=== PATIENT | female | born 1980 | race Caucasian/White ===

== ENCOUNTER 2016-07-18 17:31 | Emergency (ER) | payer BC ==
[~2016-07-18] VITALS: Ht 177.8 cm; Wt 79.5 kg
[~2016-07-18 17:31] MED LIST: ACID REDUCER200 MG PO; CALCIUM CARBONATE PO; CLARITIN10 MG PO; DUO-KAPS1 CAP PO; NO HOME MEDICATIONS; NORCO 325 MG-51 TAB PO; SYNTHROID0.075 MG/T PO; SYNTHROID0.088 MG/T PO; ZOFRAN 4MG T4 MG/TAB PO
[2016-07-18 17:32] VITALS: BP 120/85; TEMP 98.2
[2016-07-18] MEDS ORDERED: SYNTHROID0.125 MG/T PO (17:40)
[2016-07-18 18:32] LABS: BASO % 0.5 % (0.0-2.0); EOS # 0.2 (0.0-0.7); EOS % 2.8 % (0-4.0); GRAN # 5.9 (1.4-6.5); GRAN % 70.2 % (42.2-75.2); LYMPH # 1.5 (1.2-3.4); LYMPH % 17.3 % (20.0-51.0); MEAN CELL VOLUME 90 fl (80.0-100.0); MEAN CORPUSCULAR HGB CONC 34 g/dl (33.0-37.0); MEAN PLATELET VOLUME 10.3 fl (7.4-10.4); MONO # 0.7 (0.1-0.6); MONO % 7.9 % (1.7-9.3); PLATELET COUNT 209 K/mm3 (130-400); RED BLOOD COUNT 3.44 M/mm3 (4.10-5.30); REDCELL DISTRIBUTION WIDTH-CV 11.9 % (11.5-14.5); WHITE BLOOD COUNT 8.4 K/mm3 (4.8-10.8)
[2016-07-18 18:33] LABS: HEMATOCRIT 30.9 % (37.0-47.0); HEMOGLOBIN 10.5 g/dl (12.5-16.0); MEAN CORPUSCULAR HEMOGLOBIN 31 pg (27.0-31.0)
[2016-07-18 18:47] LABS: ALBUMIN 3.2 gm/dL (3.5-5.0); BILIRUBIN,TOTAL 0.7 mg/dL (0.0-1.0); CALCIUM 8.4 mg/dL (8.4-10.2); CREATININE, serum 0.5 mg/dL (0.52-1.25); POTASSIUM 3.7 mmol/L (3.4-5.0); TOTAL PROTEIN 5.9 gm/dL (6.4-8.2)
[2016-07-18 19:17] LABS: THYROID STIMULATING HORMONE 1.5 uIU/mL (0.465-4.680)
[2016-07-18 20:26] VITALS: PULSE 92
== END 2016-07-18 20:26 | disposition home or self-care (01) ==
LOC: COL.ER 17:31
PROVIDERS: Emergency Medicine
DX: O99.89 Other specified diseases and conditions complicating pregnancy, childbirth and the puerperium (principal); R00.2 Palpitations; Z3A.22 22 weeks gestation of pregnancy

== ENCOUNTER 2016-09-16 11:34 | Inpatient (IN) | payer BC ==
[2016-09-16] VITALS (28 sets, daily range): BP systolic 104–138; BP diastolic 55–83; PULSE 85–125; TEMP 97.9–98.2
[~2016-09-16] VITALS: Ht 177.8 cm; Wt 82.7 kg
[~2016-09-16 11:34] MED LIST changes: +SYNTHROID0.125 MG/T PO
[2016-09-16 15:14] LABS: ADD PATHOLOGY DIFF REVIEW NO
[2016-09-16 15:23] LABS: MEAN CELL VOLUME 87 fl (80.0-100.0); MEAN CORPUSCULAR HGB CONC 33 g/dl (33.0-37.0); MEAN PLATELET VOLUME 10.6 fl (7.4-10.4); PLATELET COUNT 194 K/mm3 (130-400); RED BLOOD COUNT 4.07 M/mm3 (4.10-5.30); REDCELL DISTRIBUTION WIDTH-CV 13.2 % (11.5-14.5); WHITE BLOOD COUNT 9.6 K/mm3 (4.8-10.8)
[2016-09-16 15:35] LABS: HEMATOCRIT 35.5 % (37.0-47.0); HEMOGLOBIN 11.6 g/dl (12.5-16.0); MEAN CORPUSCULAR HEMOGLOBIN 29 pg (27.0-31.0)
[2016-09-16] MEDS ORDERED: IRON TABLETS325 MG PO (15:36)
[2016-09-16] MEDS ORDERED: PRENATAL PLUS (15:37)
[2016-09-16 15:44] LABS: BAND 27 % (0-10); NEUTROPHILS 60 % (42.0-75.2); TOTAL CELLS COUNTED 100
[2016-09-16 15:45] LABS: PLATELET ESTIMATE NORMAL (NORMAL)
[2016-09-16 16:00] LABS: ADJUSTED CALCIUM 9.4 mg/dL (8.4-10.2); ALBUMIN 3.8 gm/dL (3.5-5.0); BILIRUBIN,TOTAL 0.9 mg/dL (0.0-1.0); CALCIUM 9.2 mg/dL (8.4-10.2); CREATININE, serum 0.63 mg/dL (0.52-1.25); POTASSIUM 3.7 mmol/L (3.4-5.0); TOTAL PROTEIN 7.4 gm/dL (6.4-8.2)
[2016-09-16 16:32] LABS: THYROID STIMULATING HORMONE 2.64 uIU/mL (0.465-4.680)
[2016-09-16 18:13] LABS: THYROXINE (T4)-TOTAL 17.3 ug/dL (5.5-11.0)
[2016-09-16] MEDS ORDERED: MOTRIN 800800 MG/TAB PO (23:08)
[2016-09-17 00:23] VITALS: BP 104/79; PULSE 100
[2016-09-17 00:53] VITALS: BP 101/61; PULSE 90
[2016-09-17 03:30] VITALS: BP 98/61; PULSE 92; TEMP 96.9
[2016-09-17 06:50] VITALS: BP 109/72; PULSE 62; TEMP 97.8
[2016-09-18 08:05] LABS: FACTOR V LEIDEN MUTATION B Negative (Negative)
[2016-09-18 08:07] LABS: PT G20210A MUTATION B Negative (Negative)
[2016-09-19 11:48] LABS: LUPUS ANTICOAGULANT PTT 26 sec (26 - 36)
[2016-09-19 11:50] LABS: LUPUS ANTICOAGULANT PT 11.3 sec (())
[2016-09-19 11:58] LABS: LUPUS ANTICOAGULANT DRVVT 0.9 ratio (())
[2016-09-19 13:22] LABS: .ANTICARDIOLIPIN IGG <9.4 GPL (())
[2016-09-19 17:31] LABS: BETA-2 GPI IGG AABS <9.4 U/mL (()); BETA-2 GPI IGM AABS <9.4 U/mL (())
== END 2016-09-17 12:50 | disposition home or self-care (01) | DRG 775 ==
LOC: OB 11:34 → LDR 14:04 → OB 14:04 → LDR 14:41 → OB 09-17 01:30
PROVIDERS: Obstetrics & Gynecology
PROC: 10E0XZZ Delivery of Products of Conception, External Approach (ICD-10-PCS; principal; 2016-09-16)
PROC: 3E0P7GC Introduction of Other Therapeutic Substance into Female Reproductive, Via Natural or Artificial Opening (ICD-10-PCS; 2016-09-16)
DX: O36.4XX0 Maternal care for intrauterine death, not applicable or unspecified (principal); O99.284 Endocrine, nutritional and metabolic diseases complicating childbirth; E03.9 Hypothyroidism, unspecified; O99.02 Anemia complicating childbirth; D64.9 Anemia, unspecified; Z3A.30 30 weeks gestation of pregnancy; Z37.1 Single stillbirth
CPT/HCPCS: J2590; J7120

== ENCOUNTER → 2016-10-31 | Outpatient (CLI) | payer BC ==
[~2016-10-31] MED LIST changes: +IRON TABLETS325 MG PO; +MOTRIN 800800 MG/TAB PO; +PRENATAL PLUS
== END ==
LOC: MC.RAD 09:13
DX: N60.02 Solitary cyst of left breast (principal)

== ENCOUNTER → 2017-07-08 | Outpatient (CLI) | payer BC | LOC: COL.RAD 13:47 | DX: R13.10 Dysphagia, unspecified (principal); Z86.39 Personal history of other endocrine, nutritional and metabolic disease; E89.0 Postprocedural hypothyroidism ==

== ENCOUNTER → 2017-07-25 | Outpatient (CLI) | payer BC ==
[~2017-07-25] MED LIST changes: +FLEXERIL5 MG PO; +SYNTHROID0.1 MG/TAB PO
== END ==
LOC: COL.VAS 08:00
DX: M79.605 Pain in left leg (principal)

== ENCOUNTER 2017-08-29 17:01 | Emergency (ER) | payer SELFPAY ==
[~2017-08-29] VITALS: Ht 180.3 cm; Wt 70.5 kg
[2017-08-29 17:07] VITALS: BP 118/75; TEMP 99.4
[2017-08-29] MEDS ORDERED: PRILOSEC 20MG20 MG PO (17:13)
[2017-08-29] MEDS ORDERED: FLONASE NASAL S16 GM NS (17:27)
[2017-08-29 18:03] LABS: BASO # 0.1 (0.0-0.2); EOS # 0.2 (0.0-0.7); EOS % 3.7 % (0-4.0); GRAN # 3.4 (1.4-6.5); GRAN % 54.8 % (42.2-75.2); HEMATOCRIT 38.7 % (37.0-47.0); HEMOGLOBIN 13.2 g/dl (12.5-16.0); LYMPH % 32.3 % (20.0-51.0); MEAN CELL VOLUME 90 fl (80.0-100.0); MEAN CORPUSCULAR HEMOGLOBIN 31 pg (27.0-31.0); MEAN CORPUSCULAR HGB CONC 34 g/dl (33.0-37.0); MEAN PLATELET VOLUME 10.4 fl (7.4-10.4); MONO # 0.5 (0.1-0.6); MONO % 7.9 % (1.7-9.3); PLATELET COUNT 215 K/mm3 (130-400); RED BLOOD COUNT 4.32 M/mm3 (4.10-5.30)
[2017-08-29 18:11] LABS: ALBUMIN 4.4 gm/dL (3.5-5.0); BILIRUBIN,TOTAL 1.1 mg/dL (0.0-1.0); CALCIUM 8.8 mg/dL (8.4-10.2); CREATININE, serum 0.68 mg/dL (0.52-1.25); POTASSIUM 3.7 mmol/L (3.4-5.0); TOTAL PROTEIN 7.2 gm/dL (6.4-8.2)
[2017-08-29 18:44] LABS: TSH w REFLEX 0.153 uIU/mL (0.465-4.680)
[2017-08-29 19:54] VITALS: PULSE 74
== END 2017-08-29 19:55 | disposition home or self-care (01) ==
LOC: COL.ER 17:01
PROVIDERS: Physician Assistant
DX: R06.00 Dyspnea, unspecified (principal); R94.6 Abnormal results of thyroid function studies; K21.9 Gastro-esophageal reflux disease without esophagitis; E03.9 Hypothyroidism, unspecified; F17.210 Nicotine dependence, cigarettes, uncomplicated

== ENCOUNTER 2017-09-09 08:00 | Outpatient (RCR) | payer BC ==
[~2017-09-09 08:00] MED LIST changes: +FLONASE NASAL S16 GM NS; +PRILOSEC 20MG20 MG PO
== END 2017-12-08 | disposition home or self-care (01) ==
LOC: WSST
DX: R13.12 Dysphagia, oropharyngeal phase (principal)

== ENCOUNTER → 2018-09-02 | Outpatient (CLI) | payer BC | LOC: COL.RAD 09:25 | DX: K58.9 Irritable bowel syndrome, unspecified (principal); K59.00 Constipation, unspecified; R17 Unspecified jaundice ==

== ENCOUNTER 2018-11-17 08:46 | Emergency (ER) | payer BC ==
[~2018-11-17] VITALS: Ht 180.3 cm; Wt 68.2 kg
[2018-11-17 08:50] VITALS: TEMP 97.9
[2018-11-17] MEDS ORDERED: SYNTHROID0.088 MG/T PO (09:05)
[2018-11-17 09:08] LABS: BASO % 0.7 % (0.0-2.0); EOS # 0.2 (0.0-0.7); EOS % 4.4 % (0-4.0); GRAN % 54.5 % (42.2-75.2); HEMATOCRIT 40.1 % (37.0-47.0); LYMPH # 1.7 (1.2-3.4); LYMPH % 30.6 % (20.0-51.0); MEAN CELL VOLUME 88 fl (80.0-100.0); MEAN CORPUSCULAR HEMOGLOBIN 29 pg (27.0-31.0); MEAN CORPUSCULAR HGB CONC 32 g/dl (33.0-37.0); MEAN PLATELET VOLUME 10.2 fl (7.4-10.4); MONO # 0.5 (0.1-0.6); MONO % 9.6 % (1.7-9.3); PLATELET COUNT 206 K/mm3 (130-400); RED BLOOD COUNT 4.55 M/mm3 (4.10-5.30); REDCELL DISTRIBUTION WIDTH-CV 12.2 % (11.5-14.5)
[2018-11-17 09:16] LABS: ALANINE AMINOTRANSFERASE 21 U/L (9-52); ALBUMIN 4.5 gm/dL (3.5-5.0); ALKALINE PHOSPHATASE 58 U/L (50-136); ANION GAP 13 mmol/L (7-16); AST,SGOT 23 U/L (15-37); BILIRUBIN,TOTAL 1.8 mg/dL (0.0-1.0); BLOOD UREA NITROGEN 13 mg/dL (7-17); CALCIUM 9.3 mg/dL (8.4-10.2); CARBON DIOXIDE 25 mmol/L (22-30); CHLORIDE 104 mmol/L (98-107); CREATININE, serum 0.79 (0.52-1.25); GLUCOSE 93 mg/dL (74-106); LIPASE 110 U/L (23-300); POTASSIUM 3.4 mmol/L (3.4-5.0); SODIUM 142 mmol/L (137-145); TOTAL PROTEIN 7.7 gm/dL (6.4-8.2)
[2018-11-17 09:30] LABS: TROPONIN-I < 0.012 ng/mL (0.000-0.035)
[2018-11-17 09:57] LABS: THYROID STIMULATING HORMONE 2.31 uIU/mL (0.465-4.680)
[2018-11-17] MEDS ORDERED: CARAFATE 1GM1 G PO (11:17)
[2018-11-17] MEDS ORDERED: PEPCID40 MG PO (11:17)
[2018-11-17 12:16] VITALS: BP 102/75; PULSE 88
== END 2018-11-17 12:16 | disposition home or self-care (01) ==
LOC: COL.ER 08:46
PROVIDERS: Emergency Medicine
DX: R07.89 Other chest pain (principal); R00.2 Palpitations
CPT/HCPCS: J7030

== ENCOUNTER → 2018-12-17 | Outpatient (CLI) | payer BC ==
[~2018-12-17] MED LIST changes: +CARAFATE 1GM1 G PO; +PEPCID40 MG PO
== END ==
LOC: COL.RAD 12-03 10:00
DX: M54.9 Dorsalgia, unspecified (principal); R10.9 Unspecified abdominal pain
CPT/HCPCS: Q9967

== ENCOUNTER → 2018-12-18 | Outpatient (CLI) | payer BC | LOC: COL.RAD 10:57 | DX: N94.6 Dysmenorrhea, unspecified (principal); R93.89 Abnormal findings on diagnostic imaging of other specified body structures ==

== ENCOUNTER → 2019-02-08 | Outpatient (CLI) | payer BC | LOC: COL.RAD 07:10 | DX: K21.9 Gastro-esophageal reflux disease without esophagitis (principal); R17 Unspecified jaundice; K58.9 Irritable bowel syndrome, unspecified; R10.9 Unspecified abdominal pain; K59.00 Constipation, unspecified; K22.70 Barrett's esophagus without dysplasia | CPT/HCPCS: A9537 ==

== ENCOUNTER 2019-04-01 13:08 | Emergency (ER) | payer BC ==
[~2019-04-01] VITALS: Ht 177.8 cm; Wt 65.9 kg
[2019-04-01 15:08] LABS: BASO # 0.1 (0.0-0.2); BASO % 1.1 % (0.0-2.0); EOS # 0.3 (0.0-0.7); EOS % 4.6 % (0-4.0); GRAN # 3.5 (1.4-6.5); GRAN % 64.8 % (42.2-75.2); HEMATOCRIT 37.2 % (37.0-47.0); HEMOGLOBIN 11.8 g/dl (12.5-16.0); LYMPH # 1.1 (1.2-3.4); LYMPH % 20.8 % (20.0-51.0); MEAN CELL VOLUME 88 fl (80.0-100.0); MEAN CORPUSCULAR HEMOGLOBIN 28 pg (27.0-31.0); MEAN CORPUSCULAR HGB CONC 32 g/dl (33.0-37.0); MEAN PLATELET VOLUME 10.5 fl (7.4-10.4); MONO # 0.5 (0.1-0.6); MONO % 8.3 % (1.7-9.3); PLATELET COUNT 220 K/mm3 (130-400); RED BLOOD COUNT 4.23 M/mm3 (4.10-5.30); REDCELL DISTRIBUTION WIDTH-CV 12.5 % (11.5-14.5)
[2019-04-01 15:17] LABS: CALCIUM 9.3 mg/dL (8.4-10.2); CREATININE, serum 0.79 (0.52-1.25); POTASSIUM 4.1 mmol/L (3.4-5.0)
[2019-04-01 15:47] LABS: TSH w REFLEX 2.88 uIU/mL (0.465-4.680)
[2019-04-01] MEDS ORDERED: LOESTRIN 1/20 21DAY PO (16:34)
[2019-04-01 16:46] VITALS: BP 122/72; PULSE 78; TEMP 98.4
== END 2019-04-01 16:47 | disposition home or self-care (01) ==
LOC: COL.ER 13:08
PROVIDERS: Emergency Medicine
DX: N93.8 Other specified abnormal uterine and vaginal bleeding (principal)

== ENCOUNTER → 2019-07-08 | Outpatient (CLI) | payer BC ==
[~2019-07-08] MED LIST changes: +LOESTRIN 1/20 21DAY PO
== END ==
LOC: MC.RAD 08:40
DX: N60.01 Solitary cyst of right breast (principal); N63.13 Unspecified lump in the right breast, lower outer quadrant
CPT/HCPCS: G0279

== ENCOUNTER → 2020-04-07 | Day surgery (SDC) | payer BC ==
[~2020-04-07] MED LIST changes: +NEXIUM 40MG40 MG PO
== END ==
LOC: SDCO 03-03 11:00
DX: K21.9 Gastro-esophageal reflux disease without esophagitis (principal); K22.70 Barrett's esophagus without dysplasia; K58.9 Irritable bowel syndrome, unspecified; D64.9 Anemia, unspecified; Z20.828 Contact with and (suspected) exposure to other viral communicable diseases; Z53.8 Procedure and treatment not carried out for other reasons

== ENCOUNTER 2020-10-06 09:42 | Day surgery (SDC) | payer BC ==
[~2020-10-06] VITALS: Ht 177.8 cm; Wt 64.7 kg
[2020-10-06 10:56] VITALS: BP 112/78; PULSE 93; TEMP 98.6
[2020-10-06] MEDS ORDERED: SYNTHROID0.1 MG/TAB PO (11:05)
[2020-10-06] MEDS ORDERED: ONE-A-DAY ESSE1 EACH PO (11:06)
[2020-10-06] MEDS ORDERED: GAVISCON F1 TAB.CHEW (11:07)
[2020-10-06] MEDS ORDERED: ALIGN10.5 MG PO (11:08)
[2020-10-06] MEDS ORDERED: ATIVAN 0.50.5 MG/TAB PO (11:09)
[2020-10-06] MEDS ORDERED: ZYRTEC ALLERGY10 MG PO (11:12)
--- NOTE | 2020-10-06 11:12 | NUR ---
TO RM AT 1035- CALL LIGHT IN REACH AT BEDSIDE.
[2020-10-06 12:20] VITALS: BP 106/75; PULSE 63; TEMP 97.4
--- NOTE | 2020-10-06 12:20 | NUR ---
TO RM 2 PER CART FROM PACU. DROWSY AND AMBULATED TO RECLINER WITH ASSIST. TALKING WITH STAFF AND HER . RECEIVED WATER AND TAKING SIPS.
[2020-10-06 12:35] VITALS: BP 109/77; PULSE 59
--- NOTE | 2020-10-06 12:35 | NUR ---
DR ALEJANDRE INTO TALK WITH PATIENT AND HER . RECEIVED [facility] PUDD[facility].
[2020-10-06 12:55] VITALS: BP 114/90; PULSE 74
--- NOTE | 2020-10-06 12:55 | NUR ---
ATE 100% AND TOLERATED WELL. PATIENT STATED SHE FELT BETTER AND WANTED TO GO EAT.
--- NOTE | 2020-10-06 13:00 | NUR ---
I WALKED IN PATIENT TRYING TO GET DRESSED. DISCONTINUED IV AND INT- CATHETER INTACT. RECEIVED DISCHARGE INSTRUCTIONS AND VERBALIZED UNDERSTANDING.
--- NOTE | 2020-10-06 13:10 | NUR ---
DISCHARGED PER WC BY NURSING STAFF TO PRIVATE CAR IN CARE OF .
== END 2020-10-06 13:13 | disposition home or self-care (01) ==
LOC: SDCO 09:42
DX: D12.0 Benign neoplasm of cecum (principal); K22.70 Barrett's esophagus without dysplasia; K21.9 Gastro-esophageal reflux disease without esophagitis; Z88.5 Allergy status to narcotic agent; Z88.8 Allergy status to other drugs, medicaments and biological substances; J45.909 Unspecified asthma, uncomplicated; F32.9 Major depressive disorder, single episode, unspecified; K58.9 Irritable bowel syndrome, unspecified; E06.3 Autoimmune thyroiditis; E03.9 Hypothyroidism, unspecified; Z20.822 Contact with and (suspected) exposure to COVID-19
CPT/HCPCS: J2704; J7120

== ENCOUNTER → 2020-10-23 | Outpatient (CLI) | payer BC ==
[~2020-10-23] MED LIST changes: +ALIGN10.5 MG PO; +ATIVAN 0.50.5 MG/TAB PO; +GAVISCON F1 TAB.CHEW; +ONE-A-DAY ESSE1 EACH PO; +ZYRTEC ALLERGY10 MG PO
== END ==
LOC: MC.RAD 10-18 11:30
DX: Z12.31 Encounter for screening mammogram for malignant neoplasm of breast (principal); Z87.898 Personal history of other specified conditions

== ENCOUNTER 2020-11-29 12:50 | Outpatient (RCR) | payer BC | END 2021-02-27 | LOC: WSST | DX: R13.10 Dysphagia, unspecified (principal) ==

== ENCOUNTER → 2020-12-19 | Outpatient (CLI) | payer BC | LOC: COL.RAD 08:01 | DX: R13.10 Dysphagia, unspecified (principal) ==

== ENCOUNTER 2021-08-21 07:53 | Emergency (ER) | payer BC ==
[~2021-08-21] VITALS: Ht 180.3 cm; Wt 63.6 kg
[2021-08-21 08:37] LABS: BASO # 0.1 K/mm3 (0.0-0.2); BASO % 1.3 % (0.0-2.0); EOS # 0.3 K/mm3 (0.0-0.7); EOS % 6.6 % (0.0-4.0); GRAN # 2.1 K/mm3 (1.4-6.5); GRAN % 54.8 % (42.2-75.2); HEMATOCRIT 39.2 % (37.0-47.0); HEMOGLOBIN 13.3 g/dl (12.5-16.0); LYMPH # 1.1 K/mm3 (1.2-3.4); LYMPH % 28.3 % (20.0-51.0); MEAN CELL VOLUME 90 fl (80.0-100.0); MEAN CORPUSCULAR HEMOGLOBIN 31 pg (27-31); MEAN CORPUSCULAR HGB CONC 34 g/dl (33.0-37.0); MEAN PLATELET VOLUME 9.9 fl (7.4-10.4); MONO # 0.3 K/mm3 (0.1-0.6); MONO % 8.7 % (1.7-9.3); PLATELET COUNT 187 K/mm3 (130-400); RED BLOOD COUNT 4.35 M/mm3 (4.10-5.30); REDCELL DISTRIBUTION WIDTH-CV 12.4 % (11.5-14.5)
[2021-08-21 08:55] LABS: ALANINE AMINOTRANSFERASE 9 U/L (0-55); ALKALINE PHOSPHATASE 38 U/L (40-150); ANION GAP 8 mmol/L (7-16); AST,SGOT 15 U/L (5-34); BILIRUBIN,TOTAL 1.7 mg/dL (0.2-1.2); BLOOD UREA NITROGEN 11 mg/dL (7-19); CALCIUM 8.5 mg/dL (8.4-10.2); CARBON DIOXIDE 23 mmol/L (22-29); CHLORIDE 109 mmol/L (98-107); CREATININE, serum 0.77 mg/dL (0.57-1.11); GLUCOSE 94 mg/dL (70-99); POTASSIUM 3.5 mmol/L (3.5-4.5); SODIUM 140 mmol/L (136-145); TOTAL PROTEIN 6.6 gm/dL (6.2-8.1)
[2021-08-21 09:03] LABS: TROPONIN-I < 0.010 ng/mL (0.00-0.033)
[2021-08-21 09:34] VITALS: BP 104/72; PULSE 70; TEMP 98.5
== END 2021-08-21 09:49 | disposition home or self-care (01) ==
LOC: COL.ER 07:53
PROVIDERS: Personal Emergency Response Attendant
DX: R07.9 Chest pain, unspecified (principal)

== ENCOUNTER 2021-10-31 12:54 | Outpatient (RCR) | payer BC | END 2021-11-27 | disposition home or self-care (01) | LOC: WSST | DX: R13.19 Other dysphagia (principal); K22.70 Barrett's esophagus without dysplasia ==

== ENCOUNTER → 2021-11-09 | Outpatient (CLI) | payer BC | LOC: MC.RAD 07:51 | DX: N60.02 Solitary cyst of left breast (principal); N60.12 Diffuse cystic mastopathy of left breast; N60.11 Diffuse cystic mastopathy of right breast ==

== ENCOUNTER 2021-11-15 21:35 | Emergency (ER) | payer BC ==
[~2021-11-15] VITALS: Ht 177.8 cm; Wt 61.4 kg
[2021-11-15 21:44] VITALS: TEMP 98.6
[2021-11-15 22:15] VITALS: BP 146/78; PULSE 76
== END 2021-11-15 22:15 | disposition home or self-care (01) ==
LOC: COL.ER 21:35
DX: M79.605 Pain in left leg (principal); Z86.72 Personal history of thrombophlebitis

== ENCOUNTER → 2021-11-16 | Outpatient (CLI) | payer BC | LOC: COL.VAS 08:15 | DX: M79.605 Pain in left leg (principal) ==

== ENCOUNTER → 2021-11-27 | Outpatient (CLI) | payer BC | LOC: MC.RAD 07:54 | DX: N60.01 Solitary cyst of right breast (principal) ==

== ENCOUNTER → 2022-08-22 | Outpatient (CLI) | payer BC | LOC: MC.RAD 09:42 | DX: N63.11 Unspecified lump in the right breast, upper outer quadrant (principal) ==

== ENCOUNTER 2022-08-28 15:31 | Emergency (ER) | payer BC ==
[~2022-08-28] VITALS: Ht 177.8 cm; Wt 63.6 kg
[2022-08-28 15:39] VITALS: TEMP 98.8
[2022-08-28 16:07] LABS: BASO # 0.1 K/mm3 (0.0-0.2); BASO % 1.2 % (0.0-2.0); EOS # 0.2 K/mm3 (0.0-0.7); EOS % 3.3 % (0.0-4.0); GRAN # 3.7 K/mm3 (1.4-6.5); GRAN % 64.5 % (42.2-75.2); HEMATOCRIT 38.6 % (37.0-47.0); HEMOGLOBIN 12.7 g/dl (12.5-16.0); LYMPH # 1.3 K/mm3 (1.2-3.4); LYMPH % 22.9 % (20.0-51.0); MEAN CELL VOLUME 87 fl (80.0-100.0); MEAN CORPUSCULAR HEMOGLOBIN 29 pg (27-31); MEAN CORPUSCULAR HGB CONC 33 g/dl (33.0-37.0); MEAN PLATELET VOLUME 10.1 fl (7.4-10.4); MONO # 0.5 K/mm3 (0.1-0.6); MONO % 7.9 % (1.7-9.3); PLATELET COUNT 243 K/mm3 (130-400); RED BLOOD COUNT 4.44 M/mm3 (4.10-5.30); REDCELL DISTRIBUTION WIDTH-CV 11.9 % (11.5-14.5)
[2022-08-28 16:26] LABS: ALANINE AMINOTRANSFERASE 16 U/L (0-55); ALBUMIN 4.1 gm/dL (3.5-5.0); ALKALINE PHOSPHATASE 48 U/L (40-150); ANION GAP 10 mmol/L (7-16); AST,SGOT 23 U/L (5-34); BLOOD UREA NITROGEN 14 mg/dL (7-19); CALCIUM 9.5 mg/dL (8.4-10.2); CARBON DIOXIDE 24 mmol/L (22-29); CHLORIDE 107 mmol/L (98-107); CREATININE, serum 0.77 mg/dL (0.57-1.11); GLUCOSE 94 mg/dL (70-99); POTASSIUM 3.8 mmol/L (3.5-4.5); SODIUM 141 mmol/L (136-145); TOTAL PROTEIN 7.1 gm/dL (6.2-8.1)
[2022-08-28 16:33] LABS: TROPONIN-I < 0.010 ng/mL (0.00-0.033)
[2022-08-28 17:04] VITALS: BP 111/78; PULSE 76
== END 2022-08-28 17:04 | disposition home or self-care (01) ==
LOC: COL.ER 15:31
PROVIDERS: Emergency Medicine
DX: R07.2 Precordial pain (principal); E80.7 Disorder of bilirubin metabolism, unspecified; Z87.891 Personal history of nicotine dependence

== ENCOUNTER → 2022-10-18 | Outpatient (CLI) | payer BC | LOC: COL.RAD 11:59 | DX: R51.9 Headache, unspecified (principal); Z82.49 Family history of ischemic heart disease and other diseases of the circulatory system; Z82.3 Family history of stroke ==

== ENCOUNTER → 2023-03-17 | Outpatient (CLI) | payer BC | LOC: COL.RAD 03-04 11:00 | DX: R13.10 Dysphagia, unspecified (principal); K22.70 Barrett's esophagus without dysplasia ==

== ENCOUNTER → 2023-07-31 | Outpatient (CLI) | payer OTHER | LOC: MC.RAD 13:00 | DX: N60.02 Solitary cyst of left breast (principal); N63.10 Unspecified lump in the right breast, unspecified quadrant ==

== ENCOUNTER 2023-09-05 06:40 | Day surgery (SDC) | payer OTHER ==
[~2023-09-05] VITALS: Ht 180.3 cm; Wt 66.1 kg
[~2023-09-05 06:40] MED LIST changes: +LR 1,000 ML IV SCH; +Ondansetron 4 MG/2 ML VIAL IV PRN
[2023-09-05] MEDS ORDERED: Lidocaine PF 2% (20 MG/ML) 5 ML VIAL ONE (06:43)
[2023-09-05 07:00] VITALS: BP 118/83; PULSE 92; TEMP 98.4
--- NOTE | 2023-09-05 07:19 | NUR ---
The patient ambulated back to [place] [facility] independently using a steady gait and appeared to tolerate the activity well. Vital signs obtained. Consent signed. 20G IV started in right hand with LR infusing without difficulty. Assessment completed. Home medications reconcilled. Warm blanket provided. Call light is within reach. is coming later to be with the patient.
[2023-09-05] MEDS ORDERED: NATURAL IRON65 MG PO (07:24)
[2023-09-05] MEDS ORDERED: ZYRTEC 10MG10 MG PO (07:25)
[2023-09-05 08:40] VITALS: BP 99/68; PULSE 69; TEMP 98.3
--- NOTE | 2023-09-05 08:40 | NUR ---
PATIENT RETURNS TO ROOM 5 VIA CART. ASSIST X 2 TO CHAIR. AT BEDSIDE. VITAL SIGNS WNL. PATIENT IS VERY SLEEPY, REQUESTS SPRITE TO DRINK. WAITING FOR PHYSICIAN TO SPEAK WITH PATIENT. WILL CONTINUE TO MONITOR.
[2023-09-05 08:55] VITALS: BP 99/66; PULSE 71
--- NOTE | 2023-09-05 08:55 | NUR ---
PATIENT IS DOING WELL. SHE IS MORE AWAKE. VITAL SIGNS WNL. PHYSICIAN AT BEDSIDE. DENIES ANY NAUSEA OR PAIN AFTER DRINKING. WILL CONTINUE TO MONITOR.
[2023-09-05 09:10] VITALS: BP 106/74; PULSE 76
--- NOTE | 2023-09-05 09:10 | NUR ---
PATIENT IS READY FOR DISCHARGE. VITAL SIGNS WNL. IV DISCONTINUED. DISCHARGE INSTRUCTIONS REVIEWED WITH PATIENT AND . WILL DISCHARGE ONCE PATIENT IS DRESSED.
== END 2023-09-05 09:30 | disposition home or self-care (01) ==
LOC: SDCO 06:40
DX: K22.70 Barrett's esophagus without dysplasia (principal); K21.00 Gastro-esophageal reflux disease with esophagitis, without bleeding; F45.8 Other somatoform disorders; Z87.891 Personal history of nicotine dependence
CPT/HCPCS: J2704; J7120

== ENCOUNTER → 2023-10-20 | Outpatient (CLI) | payer OTHER ==
[~2023-10-20] MED LIST changes: -LR 1,000 ML IV SCH; +NATURAL IRON65 MG PO; -Ondansetron 4 MG/2 ML VIAL IV PRN; +ZYRTEC 10MG10 MG PO
== END ==
LOC: MC.RAD 07:00
DX: N60.11 Diffuse cystic mastopathy of right breast (principal)

== ENCOUNTER → 2023-10-28 | Outpatient (CLI) | payer OTHER | LOC: MC.RAD 09:56 | DX: N60.11 Diffuse cystic mastopathy of right breast (principal) ==

== ENCOUNTER 2024-02-06 11:55 | Emergency (ER) | payer SELFPAY ==
[~2024-02-06] VITALS: Ht 177.8 cm; Wt 63.6 kg
[2024-02-06 11:59] VITALS: TEMP 98.6
[2024-02-06 12:37] LABS: BASO % 1.1 % (0.0-2.0); EOS # 0.3 K/mm3 (0.0-0.7); EOS % 7.9 % (0.0-4.0); GRAN # 1.6 K/mm3 (1.4-6.5); GRAN % 45.8 % (42.2-75.2); HEMATOCRIT 42.9 % (37.0-47.0); HEMOGLOBIN 13.9 g/dl (12.5-16.0); LYMPH # 1.3 K/mm3 (1.2-3.4); LYMPH % 35.3 % (20.0-51.0); MEAN CELL VOLUME 88 fl (80.0-100.0); MEAN CORPUSCULAR HEMOGLOBIN 28 pg (27-31); MEAN CORPUSCULAR HGB CONC 32 g/dl (33.0-37.0); MEAN PLATELET VOLUME 10.1 fl (7.4-10.4); MONO # 0.3 K/mm3 (0.1-0.6); MONO % 9.6 % (1.7-9.3); PLATELET COUNT 203 K/mm3 (130-400); RED BLOOD COUNT 4.89 M/mm3 (4.10-5.30); REDCELL DISTRIBUTION WIDTH-CV 12.5 % (11.5-14.5)
[2024-02-06 12:49] LABS: ALANINE AMINOTRANSFERASE 14 U/L (0-55); ALBUMIN 4.4 g/dL (3.5-5.0); ALKALINE PHOSPHATASE 47 U/L (40-150); ANION GAP 10 mmol/L (7-16); AST,SGOT 19 U/L (5-34); BILIRUBIN,TOTAL 1.4 mg/dL (0.2-1.2); BLOOD UREA NITROGEN 10 mg/dL (7-19); CALCIUM 9.6 mg/dL (8.4-10.2); CHLORIDE 107 mEq/L (98-107); CREATININE, serum 0.78 mg/dL (0.57-1.11); GLUCOSE 90 mg/dL (70-99); LIPASE 31 U/L (8-78); POTASSIUM 3.9 mEq/L (3.5-4.5); SODIUM 142 mEq/L (136-145); TOTAL PROTEIN 7.5 g/dl (6.2-8.1)
[2024-02-06] MEDS ORDERED: NS 1,000 ML IV ONE (13:00)
[2024-02-06 13:01] LABS: TROPONIN-I < 0.010 ng/mL (0.00-0.033)
[2024-02-06 14:08] VITALS: BP 105/75; PULSE 64
== END 2024-02-06 14:14 | disposition home or self-care (01) ==
LOC: COL.ER 11:55
PROVIDERS: Physician Assistant
DX: R07.89 Other chest pain (principal); D72.829 Elevated white blood cell count, unspecified
CPT/HCPCS: J7030

== ENCOUNTER 2024-02-27 14:30 | Outpatient (RCR) | payer OTHER | END 2024-02-28 | disposition home or self-care (01) | LOC: PT.GENESIS | DX: G90.A Postural orthostatic tachycardia syndrome [POTS] (principal); R53.81 Other malaise ==